=== PATIENT | female | born 1950 | race Caucasian/White ===

== ENCOUNTER 2017-02-05 14:13 | Emergency (ER) | payer OTHER ==
[~2017-02-05] VITALS: Ht 157.5 cm; Wt 82.7 kg
[2017-02-05] MEDS ORDERED: PRAD150C PO (14:29)
[2017-02-05] MEDS ORDERED: ATEN50TA2 PO (14:29)
[2017-02-05] MEDS ORDERED: MORPHINE 4 MG/ML 1ML SYRINGE IV ONE (14:30)
[2017-02-05] MEDS ORDERED: ONDANSETRON 4MG/2ML VIAL (J2405) IV ONE (14:30)
--- NOTE | 2017-02-05 14:54 | REP ---
Clinical: Trauma with anticoagulation therapy . Findings: Age-related atrophy and microvascular ischemic changes are appreciated. The ventricles and sulci are symmetric. Jones-white differentiation is maintained. There is no evidence for acute intracranial hemorrhage, mass/mass effect, pathology or infarction. No extra-axial fluid collection. Calvarium is intact. Paranasal sinuses and mastoid air cells are clear. Impression: Age related atrophy and microvascular ischemic changes. No acute intracranial hemorrhage, infarction, or mass/mass effect. Signed by Wellington Clarke MD 02/05/2017 02:46 P
--- NOTE | 2017-02-05 15:11 | REP ---
Clinical: Trauma. Technique: Internal rotation and external rotation views of the left shoulder. Views: There appears to be a subtle impacted fracture involving the humeral head/neck. Underlying osteopenia and age-related degenerative changes are appreciated. Acromioclavicular joint is normal. The surrounding soft tissues are grossly unremarkable. Impression: Subtle impacted fracture at the humeral neck. Signed by Wellington Clarke MD 02/05/2017 03:02 P
[2017-02-05] MEDS ORDERED: PERC5TAB12 PO (15:28)
[2017-02-05 15:48] VITALS: BP 141/63
== END 2017-02-05 16:21 | disposition home or self-care (01) ==
LOC: M ED 14:13 → EDBD 14:13 → M ED 16:21
DX: S42.295A Other nondisplaced fracture of upper end of left humerus, initial encounter for closed fracture (principal); V28.1XXA Motorcycle passenger injured in noncollision transport accident in nontraffic accident, initial encounter; Y92.410 Unspecified street and highway as the place of occurrence of the external cause; Y93.89 Activity, other specified; Y99.9 Unspecified external cause status
CPT/HCPCS: 70450; 73030; 96374; 96375; 99284; J2405